=== PATIENT | female | born 1935 | race Caucasian/White ===

== ENCOUNTER 2022-03-24 17:16 | Emergency (ER) | payer OTHER ==
[~2022-03-24] VITALS: Ht 149.9 cm; Wt 54.4 kg
[2022-03-24 17:29] VITALS: BP_SYST 132
[2022-03-24] MEDS ORDERED: LOSA25TA3 PO (17:36)
[2022-03-24] MEDS ORDERED: SIMV-343 PO (17:37)
--- NOTE | 2022-03-24 17:37 | NUR ---
Medication reconciliation completed with information provided by [facility]. Any prior medication reconciliation on file was reviewed and corrected.
--- NOTE | 2022-03-24 17:51 | NUR ---
Placed in room 6 . Placed on satellite project site monitor, blood pressure machine and pulse oximeter. To gown for exam. Side rails up. Report given to GE ABRAHAM.
--- NOTE | 2022-03-24 18:10 | NUR ---
PATIENT FROM [facility] FOR LEFT KNEE AND FOOT SWELLING TODAY. SENT FOR RULE OUT DVT. PAIN 11/11. HX OF HTN.
--- NOTE | 2022-03-24 18:24 | NUR ---
MD GALARZA AT BEDSIDE EXAMINING PATIENT
--- NOTE | 2022-03-24 19:28 | NUR ---
PT IS A&O X 4. SHE IS IN A GOOD SPIRIT. DENIES ANY PAIN. VITAL SIGN NORMAL LIMITS. ON THE BEDSIDE.
--- NOTE | 2022-03-24 20:16 | NUR ---
PT IS GETTING ULTRASOUD. PT IS COOPERATIVE AND VSS.
[2022-03-24 20:44] VITALS: BP_SYST 147
--- NOTE | 2022-03-24 20:45 | NUR ---
Patient given written and verbal discharge instructions and verbalizes understanding. ER MD discussed with patient the results and treatment provided. Patient in stable condition. ID arm band removed. no Rx of MEDS given. Patient educated on pain management and to follow up with PMD. Pain Scale 0/10 Opportunity for questions provided and answered. Medication side effect fact sheet provided.
== END 2022-03-24 20:44 | disposition home or self-care (01) ==
LOC: SED 17:16
DX: I89.0 Lymphedema, not elsewhere classified (principal); R22.42 Localized swelling, mass and lump, left lower limb; I10 Essential (primary) hypertension; Z88.0 Allergy status to penicillin; Z88.5 Allergy status to narcotic agent; Z79.899 Other long term (current) drug therapy
CPT/HCPCS: 93970; 99284